=== PATIENT | male | born 1960 | race Caucasian/White ===

== ENCOUNTER 2022-03-10 17:35 | Emergency (ER) | payer MEDICAID ==
[~2022-03-10] VITALS: Ht 175.3 cm; Wt 98.0 kg
[2022-03-10 17:41] VITALS: BP 184/97
== END 2022-03-10 22:26 | disposition left against medical advice (07) ==
LOC: ER 17:35
DX: Z53.21 Procedure and treatment not carried out due to patient leaving prior to being seen by health care provider (principal)